=== PATIENT | male | born 1980 | race Caucasian/White ===

== ENCOUNTER 2018-07-16 01:43 | Emergency (ER) | payer OTHER ==
[~2018-07-16] VITALS: Ht 167.6 cm; Wt 79.5 kg
[2018-07-16] MEDS ORDERED: IBUP80TA PO (02:08)
[2018-07-16 03:32] LABS: BLOOD UREA NITROGEN 16 MG/DL (7-18); CALCIUM LEVEL 8.2 MG/DL (8.5-10.1); CARBON DIOXIDE LEVEL 28 MEQ/L (21-32); CHLORIDE LEVEL 107 MEQ/L (98-107); CPK CREATINE PHOSPHOKINASE 81 U/L (39-308); CREATININE FOR GFR 0.94 MG/DL (0.70-1.30); GLOMERULAR FILTRATION RATE > 60.0 (>60); GLUCOSE, FASTING 106 MG/DL (70-100); POTASSIUM SERUM 4.2 MEQ/L (3.5-5.1); SODIUM LEVEL 142 MEQ/L (136-145)
[2018-07-16] MEDS ORDERED: KETOROLAC 60 MG/2 ML VIAL (J1885) IM ONE (03:45)
--- NOTE | 2018-07-16 04:04 | REPVR ---
EXAM: US Duplex Bilateral Lower Extremity Veins EXAM DATE/TIME: 07/16/2018 3:49 AM CLINICAL HISTORY: 37 years old, male; Pain; Leg, upper; Bilateral TECHNIQUE: Real-time duplex ultrasound of the Bilateral Lower Extremities with 2-D gagnon scale, color Doppler flow and spectral waveform analysis. Complete exam focused on the bilateral lower extremity veins. COMPARISON: No relevant prior studies available. FINDINGS: Right deep veins: Unremarkable. The common femoral, femoral, proximal profunda femoral and popliteal veins are patent without thrombus. Normal Doppler waveforms. Normal compressibility and/or augmentation response. Right superficial veins: Saphenofemoral junction is patent without thrombus. Left deep veins: Unremarkable. The common femoral, femoral, proximal profunda femoral and popliteal veins are patent without thrombus. Normal Doppler waveforms. Normal compressibility and/or augmentation response. Left superficial veins: Saphenofemoral junction is patent without thrombus. Soft tissues: Unremarkable. IMPRESSION: Negative bilateral lower extremity venous duplex exam without evidence of deep venous thrombosis. Electronically signed by: Ernie Rios On 07/16/2018 04:03:55 AM
[2018-07-16 04:18] VITALS: BP 138/68
== END 2018-07-16 04:20 | disposition home or self-care (01) ==
LOC: M ED 01:43
DX: M79.604 Pain in right leg (principal); M79.605 Pain in left leg; M54.9 Dorsalgia, unspecified; Z88.0 Allergy status to penicillin; Z88.7 Allergy status to serum and vaccine